=== PATIENT | male | born 1935 | race Asian ===

== ENCOUNTER 2017-11-11 12:08 | Emergency (ER) | payer MEDICARE ==
[~2017-11-11] VITALS: Ht 162.6 cm; Wt 63.5 kg
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
--- NOTE | 2017-11-11 14:20 | NUR ---
Patient discharged to home in stable condition. Written and verbal after care instructions given. Patient verbalizes understanding of instruction.
[2017-11-11 14:34] VITALS: BP 142/75
== END 2017-11-11 14:20 | disposition home or self-care (01) ==
LOC: ER 12:11
DX: S20.211A Contusion of right front wall of thorax, initial encounter (principal); I10 Essential (primary) hypertension; E11.9 Type 2 diabetes mellitus without complications; Z88.8 Allergy status to other drugs, medicaments and biological substances; V43.53XA Car driver injured in collision with pick-up truck in traffic accident, initial encounter; Y93.89 Activity, other specified; Y92.413 State road as the place of occurrence of the external cause; Y99.8 Other external cause status
CPT/HCPCS: 71100; 99284; A4606; Z7610